=== PATIENT | female | born 1960 | race African-American/Black ===

== ENCOUNTER 2021-08-06 10:51 | Inpatient (IN) | payer OTHER ==
[~2021-08-06] VITALS: Ht 162.6 cm; Wt 137.9 kg
[~2021-08-06 10:51] MED LIST: ACETAMINOPHEN325 M1 PO; ADIPEX-P37.5 MG PO; AFEDITAB CR60 M1 PO; ALPRAZOLAM 0.50.5 M1 PO; AMBIEN 10 MG TA10 MG PO; AMBIEN 5 MG TABL5 M1 PO; ASACOL400 MG PO; ASPIRIN EC81 M1 PO; B12INJ; B12INJ INJECTION; CALCIUM CARBO1250 MG PO; CIPRO250 M1 PO; CIPRO500 MG PO; CIPROFLOXACIN500 M1 PO; CYMBALTA60 MG PO; DESYREL150 MG PO; DESYREL50 MG PO; ENTOCORT EC 3 MG3 M1 PO; ESTRACE0.5 MG PO; FEXOFENADINE HC60 MG PO; FIBERCON625 M1; FLAGYL500 MG PO; FUROSEMIDE 20 M20 MG PO; FUROSEMIDE 40 M40 MG PO; IRON325 IV; IRON325 PO; LACTINEX CHEWA1 EACH PO; LASIX 20 MG TAB20 MG PO; LEXAPRO 10 MG T10 M1 PO; LEXAPRO20 MG PO; LIALDA1.2 GM PO; LISINOPRIL20 MG PO; LISINOPRIL40 MG PO; LORATIDINE 10 M10 M1 PO; MAGIC MOUTHWASH SWISH&SPIT; MULTI-VITAMIN1 EAC5 PO; NEURONTIN600 MG PO; NORCO 5-325 TA1 EACH PO; NYSTATIN 100,0015 G1 TOP; NYSTATIN15 G1; OXYBUTYNIN 5 MG5 M2 PO; PREDNISONE 20 M20 M1 PO; PREDNISONE10 MG PO; PROVERA5 MG PO; REMIFEMIN PO; TOPAMAX 25 MG T25 M1 PO; TOPAMAX 25 MG T25 MG PO; TOPAMAX100 MG PO; TYLENOL325 MG PO; VITAMIN D250000 UNIT PO; VITAMIN D31000 UNIT PO; XANAX 0.5 MG0.5 MG PO; ZOFRAN ODT4 MG PO
[2021-08-06 11:06] VITALS: BP 142/86
[2021-08-06 11:27] LABS: URINE BILIRUBIN NEGATIVE (Negative); URINE BLOOD 1+ (Negative); URINE CLARITY CLOUDY; URINE COLOR YELLOW; URINE GLUCOSE-RANDOM* NEGATIVE (Negative); URINE KETONES NEGATIVE (Negative); URINE NITRITE-REFLEX NEGATIVE (Negative); URINE PROTEIN (DIPSTICK) NEGATIVE (Negative)
[2021-08-06 11:29] LABS: URINE LEUKOCYTES-REFLEX 2+ (Negative)
[2021-08-06 12:09] LABS: CASTS None Seen /LPF (None Seen); CRYSTALS None Seen /LPF (None Seen); SQUAMOUS 4-10 Moderate /LPF (0-3); URINE RBC None Seen /HPF (NONE SEEN); URINE WBC-REFLEX >25 Many /HPF (0-5)
[2021-08-06 12:40] LABS: ABSOLUTE NEUTROPHILS 10.4 thou/uL (1.4-8.2); BASOPHILS 0.3 % (0.0-2.0); EOSINOPHILS 1.1 % (0.0-3.0); HEMATOCRIT 36.1 % (37.0-47.0); HEMOGLOBIN 11.5 gm/dL (12.0-15.0); LYMPHOCYTES 14.3 % (24.0-44.0); MCHC 31.7 g/dL (28.0-37.0); MCV 88.4 fL (80.0-100.0); MONOCYTES 9.6 % (1.0-8.0); PLATELET COUNT 302 thou/uL (150-400); POLYS 74.7 % (36.0-66.0); RBC 4.09 mil/uL (4.20-5.00); RDW 15.4 % (10.5-14.5)
[2021-08-06 12:48] LABS: CALCIUM 8.8 mg/dL (8.5-10.1); CREATININE 1.1 mg/dL (0.6-1.0); POTASSIUM 3.7 mmol/L (3.5-5.1)
[2021-08-06 13:02] LABS: TOTAL BILIRUBIN 0.4 mg/dL (0.2-1.0); TOTAL PROTEIN 7.8 g/dL (6.4-8.2)
[2021-08-06] MEDS ORDERED: VENLAFAXINE HC150 M1 PO (14:44)
[2021-08-06] MEDS ORDERED: MYRBETRIQ50 MG PO (14:45)
[2021-08-06 20:06] VITALS: BP 128/73
[2021-08-07 08:00] VITALS: BP 122/77
--- NOTE | 2021-08-07 10:32 | EKG ---
[place] [address] [address] [facility] [place] [address] ELECTROCARDIOGRAM REPORT Name: OMA HARRISON Room #: 455-P ADM IN M.R.#: [id number] Admission: 08/06/21 Attend Phys: Ora Gracia Discharge: Date of : 56 Report #: [id number] [facility] ED Test Date: 2021-08-06 Test Time: 11:40:46 Pat Name: OMA HARRISON Department: Room: [facility] Gender: F Manager Business Continuity: christoph : 1960 Requested By: Yordy Cordova Order Number: [id number] MD: Jagdish Rudolph Measurements Intervals [place] Rate: 91 P: 37 NE: 153 QRS: 31 QRSD: 95 T: 21 QT: 349 QTc: 430 Interpretive Statements Sinus rhythm Borderline T wave abnormalities Compared to ECG 02/24/2015 18:53:51 Sinus tachycardia no longer present T-wave abnormality still present Electronically Signed On 08-07-2021 10:32:25 MOP MACHINE OPERATOR by Jagdish Rudolph [email or web address] <ELECTRONICALLY SIGNED> By: Jagdish Rudolph MD 08/07/21 1032 1140 1140 Jagdish Rudolph MD /JOAQUÍN
[2021-08-07 13:36] VITALS: BP 132/71
[2021-08-07 19:30] VITALS: BP 132/74
[2021-08-08 00:12] VITALS: BP 128/74
--- NOTE | 2021-08-08 03:09 | NUR ---
PATIENT HAS BEEN A/0X4. SHE IS INDEPENDENT WITH CARES. SHE REQUESTED AMBIEN AND APRAZOLAM PRN AT HS. SHE TOOK HER MEDS WHOLE WITH WATER. PATIENT HAS RIGHT ARM IV AND FLUSHES WITH NS ORDERED ON NOV. PATIENT DENIES PAIN. CONTINUE TO MONITOR.
[2021-08-08 04:44] VITALS: BP 121/83
[2021-08-08 05:22] LABS: HEMATOCRIT 35.8 % (37.0-47.0); HEMOGLOBIN 11.5 gm/dL (12.0-15.0); MCH 28.4 pg (26.0-34.0); MCHC 32.1 g/dL (28.0-37.0); MCV 88.6 fL (80.0-100.0); RBC 4.04 mil/uL (4.20-5.00); RDW 15.3 % (10.5-14.5); WBC 6.6 thou/uL (4.0-11.0)
[2021-08-08 05:55] LABS: ALBUMIN 2.8 g/dL (3.4-5.0); PHOSPHORUS 3.8 mg/dL (2.5-4.9); POTASSIUM 3.9 mmol/L (3.5-5.1)
[2021-08-08 07:39] VITALS: BP 125/78
[2021-08-08 12:25] VITALS: BP 114/75
--- NOTE | 2021-08-08 13:21 | 2DMMODE ---
[facility] [address] [place] [place] [address] 2 D/M-MODE ECHOCARDIOGRAM Name: OMA HARRISON Room #: 455-P ADM IN M.R.#: [id number] Admission: 08/06/21 Attend Phys: Ora Gracia Discharge: Date of : 56 Report #: [id number] THIS REPORT FOR: cc: Luis Enrique Barrow MD, Andrea A. MD Park, Jin S. MD ~ APPROVED REPORT Study performed: 08/08/2021 12:31:53 EXAM: Comprehensive 2D, Doppler, and color-flow Echocardiogram Patient Location: Bedside Room #: [facility] Status: routine BSA: 2.34 HR: 64 bpm BP: 121/83 mmHg Rhythm: NSR Other Information Study Quality: Adequate Indications Edema Back pain 2D Dimensions IVSd: 10.75 (7-11mm) LVDd: 41.85 mm PWd: 11.10 (7-11mm) Ascending Ao: 32.99 (22-36mm) LVDs: 27.35 (25-40mm) Aortic Root: 31.62 mm Volumes Left Atrial Volume (Systole) Single Plane 4CH: 31.03 mL Single Plane 2CH: 51.39 mL Biplane LA Volume: 44.00 mL LA ESV Index: 19.00 mL/m2 Aortic Valve AoV Peak Casper.: 1.54 m/s AO Peak Gr.: 9.63 mmHg LVOT Max P.54 mmHg LVOT Max V: 1.18 m/s Mitral Valve [facility] [address] [address] 2 D/M-MODE ECHOCARDIOGRAM Name: HUNTEROMA YONATAN Room #: 455-P [facility] IN M.R.#: [id number] Admission: 08/06/21 Attend Phys: Ora Lucero Discharge: Date of : 56 Report #: [id number] E/A Ratio: 0.9 MV Decel. Time: 181.01 ms MV E Max Casper.: 0.75 m/s MV A Casper.: 0.82 m/s MV PHT: 52.49 ms IVRT: 96.89 ms Pulmonary Valve PV Peak Casper.: 0.96 m/s PV Peak Gr.: 3.89 mmHg Pulmonary Vein P Vein S: 0.45 m/s P Vein A: 0.23 m/s P Vein D: 0.35 m/s P Vein A Dur.: 120.0 msec P Vein S/D Ratio: 1.29 Tricuspid Valve TR Peak Casper.: 2.60 m/s RAP Estimate: 7.00 mmHg TR Peak Gr.: 26.98 mmHg RVSP: 34.00 mmHg Left Ventricle The left ventricle is normal size. There is normal LV segmental wall motion. Borderline concentric left ventricular hypertrophy. Left ventricular systolic function is normal. The left ventricular ejection fraction is within the normal range. LVEF is 60-65%. Transmitral Doppler flow pattern suggests impaired LV relaxation. Right Ventricle The right ventricle is normal size. The right ventricular systolic function is normal. Atria The left atrium size is normal. The right atrium size is normal. Aortic Valve Aortic valve is trileaflet. No aortic regurgitation is present. There is no aortic valvular stenosis. Mitral Valve The mitral valve is normal in structure. Mild mitral regurgitation. No evidence of mitral valve stenosis. Tricuspid Valve The tricuspid valve is normal in structure. Mild tricuspid regurgitation. PAP 33 mmHg [facility] [address] [place] [address] 2 D/M-MODE ECHOCARDIOGRAM Name: OMA HARRISON Room #: 455-P [facility] IN M.R.#: [id number] Admission: 08/06/21 Attend Phys: Ora Lucero Discharge: Date of : 56 Report #: [id number] Pulmonic Valve The pulmonary valve is normal in structure. There is no pulmonic valvular regurgitation. Great Vessels The aortic root is normal in size. IVC is normal in size and collapses >50% with inspiration. Pericardium There is no pericardial effusion. There is no pleural effusion. <Conclusion> The left ventricle is normal size. Left ventricular systolic function is normal. Transmitral Doppler flow pattern suggests impaired LV relaxation. The right ventricle is normal size. The left atrium size is normal. Aortic valve is trileaflet. Mild mitral regurgitation. Mild tricuspid regurgitation. <ELECTRONICALLY SIGNED> By: Jagdish Rudolph MD 08/08/211320 20 20 Jagdish Rudolph MD /INF
--- NOTE | 2021-08-08 16:03 | NUR ---
PT ADMITTED RELATED TO PNEUMONIA, UTI. CM REVIEWED CHART AND SPOKE WITH CARE TEAM. CM MET WITH PT AT BEDSIDE THIS DAY. PT APPEARED TO BE A&O X4. CM ROLE INTRODUCED. PT INDICATED SHE LIVES IN AN APARTMENT ALONE. PT INDICATED NO STEPS. 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 PT INDICATED NO HH OR OP THERAPY HX. PT INDICATED SHE PLANS TO RETURN HOME ONCE MEDICALLY STABLE. CM FOLLOWING REGARDING DC PLANNING.
[2021-08-08 16:35] VITALS: BP 124/77
[2021-08-08 17:06] LABS: GLOBULIN TOTAL 3.6 g/dL (2.2-3.9); M-SPIKE Not Observed g/dL (Not Observed)
--- NOTE | 2021-08-08 19:19 | NUR ---
Patient AOX4 for me today, up by herself. On room air. All questions and concerns were addressed
[2021-08-08 21:33] VITALS: BP 131/69
[2021-08-09 00:30] VITALS: BP 106/66
[2021-08-09 02:06] LABS: GLYCOHEMOGLOBIN (HGB A1C) 5.7 % (4.8-5.6)
--- NOTE | 2021-08-09 03:36 | NUR ---
ASSUMED PT CARE THIS PM. PT IS ALERT AND ORIENTED X4. PT DID NOT C/O SOB OR PAIN. PT DID NOT VERBALIZE ANY CONCERNS. MEDS WERE GIVEN PER EMAR ORDERS. PT IS ON RA. FALL PRECAUTIONS IN PLACE. WILL CONTINUE TO MONITOR .
[2021-08-09 07:42] VITALS: BP 135/78
[2021-08-09 12:15] VITALS: BP 130/73
[2021-08-09] MEDS ORDERED: CEFUROXIME500 MG PO (14:12)
[2021-08-09] MEDS ORDERED: KLOR-CON M2020 MEQ PO (14:12)
[2021-08-09] MEDS ORDERED: DELZICOL400 M1 PO (14:12)
[2021-08-09] MEDS ORDERED: LASIX 40 MG TAB40 M1 PO (14:12)
[2021-08-09] MEDS ORDERED: DIFLUCAN100 MG PO (14:34)
[2021-08-09] MEDS ORDERED: ULTRAM50 MG PO (14:36)
--- NOTE | 2021-08-09 14:51 | NUR ---
Pt A & O x4. Pt Vs stable. Pt NSR on the tele. Pt is independent with cares and is up ad chalino. Pt received discharge orders to home. discharge instructions reviewed with pt and pt verbalized understanding and signed instructions. Pt awaiting ride home.
--- NOTE | 2021-08-09 15:40 | NUR ---
Pt ride arrived. pt wheeled to enterence in wheelchair by staff with personal belongings and left hospital without incident in private vehicle
== END 2021-08-09 16:36 | disposition home or self-care (01) | DRG 193 ==
LOC: ER 10:51 → EROBS 13:51 → 4W 13:51
PROVIDERS: Emergency Medicine; ADMIT Hospitalist; ATTEND Hospitalist
DX: J18.9 Pneumonia, unspecified organism (principal); I50.33 Acute on chronic diastolic (congestive) heart failure; R65.11 Systemic inflammatory response syndrome (SIRS) of non-infectious origin with acute organ dysfunction; N39.0 Urinary tract infection, site not specified; K50.90 Crohn's disease, unspecified, without complications; Z68.43 Body mass index [BMI] 50.0-59.9, adult; I11.0 Hypertensive heart disease with heart failure; K43.9 Ventral hernia without obstruction or gangrene; K80.20 Calculus of gallbladder without cholecystitis without obstruction; N28.1 Cyst of kidney, acquired; R91.1 Solitary pulmonary nodule; R79.89 Other specified abnormal findings of blood chemistry; B37.9 Candidiasis, unspecified; E66.01 Morbid (severe) obesity due to excess calories; K82.8 Other specified diseases of gallbladder; G47.00 Insomnia, unspecified; Z20.822 Contact with and (suspected) exposure to COVID-19; Z23 Encounter for immunization; Z90.49 Acquired absence of other specified parts of digestive tract; Z98.891 History of uterine scar from previous surgery; Z98.84 Bariatric surgery status; Z79.899 Other long term (current) drug therapy; Z88.8 Allergy status to other drugs, medicaments and biological substances; Z82.5 Family history of asthma and other chronic lower respiratory diseases; Z82.49 Family history of ischemic heart disease and other diseases of the circulatory system
CPT/HCPCS: 10040; 10045

== ENCOUNTER 2021-10-12 04:50 | Inpatient (IN) | payer OTHER ==
[~2021-10-12] VITALS: Ht 162.6 cm; Wt 134.7 kg
--- NOTE | ~2021-10-12 | EMS ---
[address] [address] EMS Patient Care Report Name: OMA HARRISON Room #: PRE M.R.#: [id number] Admission: Attend Phys: Discharge: Date of : 56 Report #: [id number] THIS REPORT FOR: //name// Report Transmitted: 10/12/2021 04:21 EMS Care Summary [place], [place]/[facility] Incident [id number] @ 10/12/2021 04:15 Incident Location [address] [place], [place] [id number] Patient OMA ERVIN Female, 61 Years 1960 Patient Address [address] [place], [place] [id number] Patient History Anemia,Hernia (Abdominal),Crohn's Disease, Patient Allergies Compazine, Patient Medications Tylenol, Duloxetine, Furosemide, Vitamin B12, Xanax, Topiramate, Alprazolam, Myrbetriq, Chief Complaint vomitting Disposition Transported No Lights/[place] Reason Abdominal Pain/Problems [place] [facility] [place] Upon arrival to scene PT was standing in the living room complaining of [address] [address] EMS Patient Care Report Name: OMA HARRISON Room #: [facility] Shanna.#: [id number] Admission: Attend Phys: Discharge: Date of : 56 Report #: [id number] vomiting's and left lower and upper abdominal pain. PT was alert and oriented times 4 and had a GCS of 15. PT stated she has crohn's disease and a hernia currently. PT's symptoms started around 1 am. PT stated her vomit was clear in color. PT was able to walk to our cot without any assistance. Once in the ambulance we monitored the PT's vital signs and I gave her a tablet of oral Zofran. PCR was given to [facility] prior to our arrival. Upon arrival PT had a GCS of 15. Initial Vitals @04:32P: 57,R: 20,BP: 132/91,Pain: 10/10,GCS: 15,SpO2: 100,Revised Trauma: 12, Assessments @04:26MENTAL:Time Oriented,Event Oriented,Person Oriented,Place Oriented,SKIN:HEENT:Head/Face: No Abnormalities,Neck/Airway: No Abnormalities,LUNG SOUNDS:Left Upper: Tenderness,Left Lower: Tenderness,General: No Abnormalities,ABDOMEN:Left Upper: Tenderness,Left Lower: Tenderness,General: No Abnormalities,PELVIS//GI:No Abnormalities,EXTREMITIES:Left Arm: No Abnormalities,Right Arm: No Abnormalities,Left Leg: No Abnormalities,Right Leg: No Abnormalities,PULSE:Radial: 2+ Normal,NEURO:No Abnormalities, Impression Abdominal Pain Procedures @04:26 ALS Assessment Response: UnchangedSucceeded @04:32 Zofran - 4 Milligrams (mg) - Intravenous (IV) Response: Improved Timeline 04:13,Call Received 04:13,Dispatch Notified 04:15,Dispatched 04:17,En Route 04:25,On Scene 04:25,At Patient 04:26,ALS Assessment,Response: UnchangedSucceeded, 04:32,Zofran - 4 Milligrams (mg) - Intravenous (IV),Response: Improved 04:32,BP: 132/91 M,PULSE: 57,RR: 20 R,SPO2: 100 Ox,ETCO2: ,BG: ,PAIN: 10,GCS: 15, 04:36,Depart Scene 04:46,At Destination 05:00,Call Closed Disclaimer v1.1 Copyright [address] [employer] [facility] [address] [place] [address] EMS Patient Care Report Name: OMA HARRISON Room #: PRE M.R.#: [id number] Admission: Attend Phys: Discharge: Date of : 56 Report #: [id number] This EMS Care Summary contains data elements from the applicable legal record (which may be displayed differently). It is designed to provide pertinent information for the following purposes: continuity of care, clinical quality, and state data reporting. The complete legal record is available to ED staff and administrators of the receiving hospital in [employer] ID's Patient Tracker. All data is provided "as is."
[~2021-10-12 04:50] MED LIST changes: +CEFUROXIME500 MG PO; +DELZICOL400 M1 PO; +DIFLUCAN100 MG PO; +KLOR-CON M2020 MEQ PO; +LASIX 40 MG TAB40 M1 PO; +MYRBETRIQ50 MG PO; +ULTRAM50 MG PO; +VENLAFAXINE HC150 M1 PO
[2021-10-12 04:51] VITALS: BP 154/89
[2021-10-12 05:10] LABS: ABSOLUTE NEUTROPHILS 12.6 thou/uL (1.4-8.2); BASOPHILS 0.1 % (0.0-2.0); HEMATOCRIT 41.6 % (37.0-47.0); HEMOGLOBIN 13.4 gm/dL (12.0-15.0); LYMPHOCYTES 10.8 % (24.0-44.0); MCHC 32.2 g/dL (28.0-37.0); MCV 87.1 fL (80.0-100.0); MONOCYTES 2.4 % (1.0-8.0); PLATELET COUNT 327 thou/uL (150-400); POLYS 86.7 % (36.0-66.0); RBC 4.78 mil/uL (4.20-5.00); RDW 16.6 % (10.5-14.5); WBC 14.5 thou/uL (4.0-11.0)
[2021-10-12 05:29] LABS: CALCIUM 9.7 mg/dL (8.5-10.1); CREATININE 1.1 mg/dL (0.6-1.0); POTASSIUM 4.8 mmol/L (3.5-5.1)
[2021-10-12 05:33] LABS: TOTAL BILIRUBIN 0.2 mg/dL (0.2-1.0); TOTAL PROTEIN 9.2 g/dL (6.4-8.2)
[2021-10-12 07:13] LABS: URINE BILIRUBIN NEGATIVE (Negative); URINE BLOOD 1+ (Negative); URINE COLOR YELLOW; URINE GLUCOSE-RANDOM* NEGATIVE (Negative); URINE KETONES NEGATIVE (Negative); URINE LEUKOCYTES-REFLEX NEGATIVE (Negative); URINE NITRITE-REFLEX NEGATIVE (Negative); URINE PROTEIN (DIPSTICK) 1+ (Negative); URINE SPECIFIC GRAVITY 1.025 (1.005-1.035); URINE UROBILINOGEN 0.2 E.U./dl (0.2-1.0)
[2021-10-12 07:17] LABS: URINE CLARITY SLIGHTLY CLOUDY
[2021-10-12] MEDS ORDERED: STELARA90 MG/1 ML SUBQ (07:37)
[2021-10-12] MEDS ORDERED: DULOXETINE HCL60 MG PO (07:38)
[2021-10-12 07:45] VITALS: BP 125/72
[2021-10-12 08:07] VITALS: BP 143/80
[2021-10-12 09:30] LABS: SQUAMOUS >10 Many /LPF (0-3)
[2021-10-12 09:31] LABS: CASTS None Seen /LPF (None Seen); CRYSTALS None Seen /LPF (None Seen); URINE WBC-REFLEX 0-5 Rare /HPF (0-5)
[2021-10-12 09:32] LABS: URINE RBC 1-2 Rare /HPF (NONE SEEN)
[2021-10-12 09:33] LABS: BACTERIA-REFLEX 1-9 Few /HPF (None Seen)
--- NOTE | 2021-10-12 15:04 | NUR ---
PT ADMITTED RELATED TO SBO. CM REVIEWED CHART AND SPOKE WITH CARE TEAM. CM MET WITH PT AT BEDSIDE THIS DAY. PT APPEARED TO BE A&O X4. CM ROLE INTRODUCED. PT INDICATED SHE LIVES IN AN APARTMENT ALONE WITH NO STEPS. 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 PT INDICATED NO DME CITY DISPATCH SUPERVISOR. PT INDICATED SHE LOST HER OLDEST BROTHER THIS PAST AUGUST AND SHE IS FEELING HIS LOSS STRONGLY AT THIS TIME. SHE INDICATED THAT SHE PLAN TO RETURN HOME ONCE MEDICALLY STABLE. PT'S PCP IS DR. LINDA HARPER. PT IS TO HAVE UPPER GI AND SMALL BOWEL FOLLOW THROUGH TOMORROW. CM FOLLOWING REGARDING DC PLANNING.
[2021-10-12 16:06] VITALS: BP 121/55
--- NOTE | 2021-10-12 18:36 | NUR ---
ASSUMED CARE OF PT AT 1000. PT ALERT AND ORIENTED. AMBULATED TO BATHROOM TO TAKE A SHOWER. CONTINENT. VSS. AFEBRILE AND ON ROOM AIR. CURRENTLY NPO. MORPHINE ADMINISTERED FOR ABDOMINAL PAIN. NO VOMITING ON THIS SHIFT. PERIPHERAL IV LEFT AC AND HAS NORMAL SALINE INFUSING. PT WENT DOWN FOR UPPER GI FOLLOW THROUGH. WILL CONTINUE TO MONITOR PT.
[2021-10-12 20:00] VITALS: BP 116/69
[2021-10-13 02:06] LABS: HEMATOCRIT 37.5 % (37.0-47.0); HEMOGLOBIN 11.8 gm/dL (12.0-15.0); MCH 27.5 pg (26.0-34.0); MCHC 31.4 g/dL (28.0-37.0); MCV 87.7 fL (80.0-100.0); RBC 4.27 mil/uL (4.20-5.00); WBC 15.2 thou/uL (4.0-11.0)
[2021-10-13 02:12] LABS: ALBUMIN 3.3 g/dL (3.4-5.0); CALCIUM 8.9 mg/dL (8.5-10.1); CREATININE 0.8 mg/dL (0.6-1.0); POTASSIUM 4.3 mmol/L (3.5-5.1); TOTAL BILIRUBIN 0.3 mg/dL (0.2-1.0); TOTAL PROTEIN 7.6 g/dL (6.4-8.2)
--- NOTE | 2021-10-13 02:55 | NUR ---
PT REMAIN ALERT AND ORIENT TIMES FOUR. UP AD BENEDICTO TO BR WITH OCCASSIONAL ASSISTANCE WITH IV POLE. PT STATE THAT SHE HADN'T SLEPT IN 24 HOURS. DID GET APPROXIMATELY 5 HRS OF SLEEP THEN COMMENCED TO GET ON THE CELL PHONE TALKING TO FAMILY MEMBERS DURING THE EARLY HOURS OF THE MORNING. VSS, AFEBRILE. C/O GENERALIZED ABD PAIN. MS GIVEN WITH GOOD RELIEF. PT REFUSED FINGER STICKS AND STATE THAT SHE WAS NOT A DIABETIC AND SHE WAS NOT GOING TO TAKE INSULIN. PT QUESTIONED THE REASON DR. DHILLON ORDERED BS/INSULIN FOR HER. POSSIBLE CT OF ABDOMEN THIS AM. PT IS REQUESTING TO TAKE A SHOWER IN THE AM. SLOW PROGRESS TOWARDS DC GOALS, WILL CONTINUE TO MONITOR.
[2021-10-13 05:07] LABS: GLYCOHEMOGLOBIN (HGB A1C) 5.5 % (4.8-5.6)
--- NOTE | 2021-10-13 12:58 | NUR ---
Pt ADMITTED FOR SBO AND IS A&OX4. Pt HAS BEEN UP AD BENEDICTO PRIOR TO PT EVAL AND TREAT. SHE STATES LIVING IN AN APARTMENT ALONE W/O STAIRS AND NO AD. PARTICIPATES IN EXERCISE PROGRAM AT HOME, STAYS ACTIVE WITH WALKING AND EXERCISES. STATES HAVING A CORTSIONE SHOT IN KNEE ON SUNDAY FOR KNEE ARTHRITIS. [facility]. Pt IS BEING D/C FROM PT.
--- NOTE | 2021-10-13 13:07 | NUR ---
I have reviewed the documentation by TOBI GROSS from 10/13/21 to 10/13/21 and I concur with it. KLAUS BAUER, PT, DPT
[2021-10-13 16:29] VITALS: BP 132/73
[2021-10-13 19:47] VITALS: BP 152/61
[2021-10-14 07:32] VITALS: BP 109/65
--- NOTE | 2021-10-14 08:35 | NUR ---
ASSUMED PT CARE THIS AM. PT IS ALERT & ORIENTED X4. PT HAS IV SITE ON [place] RUNNING NS @75ML/HR. NO C/O OF PAIN, NAUSEA AND VOMITING THIS AM. PT REFUSED ACCHUCHECK AND INSULIN. GIVEN SCHEDULED AND PRN MEDICATIONS WITHOUT DIFFICULTIES THIS AM. PT ON THE BED WATCHING TV, BED ON THE LOWEST POSITION, SIDE RAILS UP, CALL LIGHT WITHIN REACH. WILL FOLLOW POC.
[2021-10-14 15:10] VITALS: BP 124/62
[2021-10-14 19:49] VITALS: BP 121/64
--- NOTE | 2021-10-15 03:06 | NUR ---
PT RESTING IN NO ACUTE DISTRESS.A/OX4.VSS.C/O ABDOMINAL PAIN THAT WAS CONTROLLED WITH PAIN MEDS.DENIES NAUSEA.TOLERATING REGULAR FOOD.POC IS TO DISCHARGE TO HOME TODAY.ASSESSMENTS COMPLETED DOCUMENTED.
[2021-10-15 07:25] VITALS: BP 114/68
[2021-10-15 10:23] VITALS: BP 114/68
--- NOTE | 2021-10-15 13:50 | NUR ---
PT ALERT AND ORIENTED THIS MORNING. REMAINS CONCENED THAT SHE FILLS UP SO QUICKLY WHEN SHE EATS. REINFORCED EDUCATION REGARDING SMALL FREQUENT MEALS SINCE HER STOMACH IS SMALL. MD ALSO REINFORCED THIS AND PT STATES UNDERSTANDING. PLAN TO DC TODAY. RIDE HOME CAN COME AT 530 P OR 6P. IV REMOVED. PT AWARE AND IN AGREEMENT WITH DC PLAN. WILL CONT TO MONITOR UNTIL PT DC'S.
== END 2021-10-15 18:39 | disposition home or self-care (01) | DRG 388 ==
LOC: ER 04:50 → EROBS 07:34 → 4W 07:34
PROVIDERS: Emergency Medicine; Nurse Practitioner; ADMIT Pediatrics; ATTEND Pediatrics
DX: K56.600 Partial intestinal obstruction, unspecified as to cause (principal); N17.0 Acute kidney failure with tubular necrosis; K50.90 Crohn's disease, unspecified, without complications; Z68.43 Body mass index [BMI] 50.0-59.9, adult; I50.32 Chronic diastolic (congestive) heart failure; N83.202 Unspecified ovarian cyst, left side; Z88.8 Allergy status to other drugs, medicaments and biological substances; Z91.013 Allergy to seafood; F41.9 Anxiety disorder, unspecified; F32.A Depression, unspecified; Z20.822 Contact with and (suspected) exposure to COVID-19; E66.01 Morbid (severe) obesity due to excess calories; M19.90 Unspecified osteoarthritis, unspecified site; Z79.899 Other long term (current) drug therapy
CPT/HCPCS: 10040

== ENCOUNTER 2021-10-21 07:57 | Inpatient (IN) | payer OTHER ==
[~2021-10-21] VITALS: Ht 162.6 cm; Wt 138.3 kg
[~2021-10-21 07:57] MED LIST changes: +DULOXETINE HCL60 MG PO; +STELARA90 MG/1 ML SUBQ
[2021-10-21 07:58] VITALS: BP 93/60
[2021-10-21 08:51] LABS: HEMATOCRIT 38.2 % (37.0-47.0); HEMOGLOBIN 12.3 gm/dL (12.0-15.0); MCH 28.1 pg (26.0-34.0); MCHC 32.2 g/dL (28.0-37.0); MCV 87.1 fL (80.0-100.0); PLATELET COUNT 297 thou/uL (150-400); RBC 4.39 mil/uL (4.20-5.00); RDW 17.4 % (10.5-14.5); WBC 29.1 thou/uL (4.0-11.0)
[2021-10-21 09:01] LABS: CALCIUM 9.2 mg/dL (8.5-10.1); CREATININE 1.1 mg/dL (0.6-1.0); POTASSIUM 4.3 mmol/L (3.5-5.1)
[2021-10-21 09:06] LABS: MAGNESIUM 1.9 mg/dL (1.8-2.4)
[2021-10-21 09:15] LABS: ALBUMIN 3.3 g/dL (3.4-5.0); TOTAL BILIRUBIN 0.5 mg/dL (0.2-1.0); TOTAL PROTEIN 7.8 g/dL (6.4-8.2)
[2021-10-21 09:19] LABS: URINE BILIRUBIN NEGATIVE (Negative); URINE BLOOD TRACE (Negative); URINE CLARITY CLEAR; URINE COLOR YELLOW; URINE GLUCOSE-RANDOM* NEGATIVE (Negative); URINE KETONES NEGATIVE (Negative); URINE LEUKOCYTES-REFLEX NEGATIVE (Negative); URINE NITRITE-REFLEX NEGATIVE (Negative); URINE PROTEIN (DIPSTICK) NEGATIVE (Negative); URINE UROBILINOGEN 0.2 E.U./dl (0.2-1.0)
[2021-10-21 09:30] LABS: ABSOLUTE NEUTROPHILS 26.5 thou/uL (1.4-8.2); ANISOCYTOSIS 1+; PLATELET ESTIMATE NORMAL
--- NOTE | 2021-10-21 15:33 | EKG ---
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: neno : 1960 Requested By: Britney Onofre Order Number: [id number] MD: Shahab Nielsen Measurements Intervals [place] Rate: 110 P: 39 MI: 150 QRS: -3 QRSD: 86 T: QT: 363 QTc: 492 Interpretive Statements Sinus tachycardia Nonspecific T abnormalities, diffuse leads Compared to ECG 08/06/2021 11:40:46 Sinus rhythm no longer present T-wave abnormality still present Electronically Signed On 10-21-2021 15:33:27 CUSTODIAL MANAGER by Shahab Nielsen [email or web address] <ELECTRONICALLY SIGNED> By: Shahab Nielsen MD, [facility] 10/21/21 1533 2 2 Shahab Nielsen MD, FACC /EPI
[2021-10-21 18:05] VITALS: BP 120/59
--- NOTE | 2021-10-21 18:18 | NUR ---
Patient just arrived to unit & settled in. Oriented to room call button. Fall prevention education provided. Endorsed to PM RN.
--- NOTE | 2021-10-22 05:06 | NUR ---
RECEIVED CARE OF THIS PATIENT AT 1900. PATIENT ALERT AND ORIENTED X4. UP TO BSC. IV PATENT IN RAC WITH FLUIDS INFUSING. NPO SINCE [place] FOR SURGERY THIS AM. C/O PAIN, MED GIVEN. SLEPT OFF AND ON DURING NIGHT.
[2021-10-22 08:14] VITALS: BP 143/66
--- NOTE | 2021-10-22 10:04 | NUR ---
Assumed care of pt at 0700. Pt a&ox4. IVF infusing. RA. Scheduled for surgery today. Family at bedside. Call light within reach. Will continue to monitor.
[2021-10-22 12:27] VITALS: BP 99/47
[2021-10-22 15:14] VITALS: BP 113/67
[2021-10-22 21:30] LABS: HEMATOCRIT 35.2 % (37.0-47.0); HEMOGLOBIN 11.2 gm/dL (12.0-15.0); MCH 27.8 pg (26.0-34.0); MCHC 31.8 g/dL (28.0-37.0); MCV 87.3 fL (80.0-100.0); PLATELET COUNT 255 thou/uL (150-400); RBC 4.03 mil/uL (4.20-5.00); RDW 17.2 % (10.5-14.5); WBC 26.5 thou/uL (4.0-11.0)
[2021-10-22 21:38] VITALS: BP 98/61
[2021-10-22 21:41] LABS: POTASSIUM 4.3 mmol/L (3.5-5.1)
[2021-10-22 22:16] LABS: ABSOLUTE NEUTROPHILS 24.6 thou/uL (1.4-8.2)
[2021-10-22 22:18] LABS: ANISOCYTOSIS 1+; TOXIC GRANULATION 1+
[2021-10-23 05:27] LABS: HEMATOCRIT 34.2 % (37.0-47.0); HEMOGLOBIN 10.7 gm/dL (12.0-15.0); MCH 27.9 pg (26.0-34.0); MCHC 31.4 g/dL (28.0-37.0); MCV 88.8 fL (80.0-100.0); RBC 3.84 mil/uL (4.20-5.00); RDW 17.1 % (10.5-14.5); WBC 26.5 thou/uL (4.0-11.0)
--- NOTE | 2021-10-23 05:27 | NUR ---
PT AMBULATING TO BATHROOM INDEPENDENTLY AND IS TOLERATING WELL. LORTAB PROVIDING PAIN RELIEF. RESTING COMFORTABLY. NO NEEDS VOICED. CALL LIGHT WITHIN REACH. FREQUENT OBSERVATION.
[2021-10-23 05:57] LABS: CALCIUM 8.7 mg/dL (8.5-10.1); CREATININE 1.1 mg/dL (0.6-1.0); POTASSIUM 4.1 mmol/L (3.5-5.1)
[2021-10-23 07:50] VITALS: BP 131/56
--- NOTE | 2021-10-23 16:07 | NUR ---
PT ASSESSED AT START OF SHIFT. UP TO THE CHAIR FOR SEVERAL HOURS THIS AM. TOOK SHOWER. PAIN MED FOR C/O ABD DISCOMFORT. NO C/O NAUSEA OR VOMITING. LAST BM SUNDAY. LAP CHOLEY NOT PERFORMED SURGEON STATED TOO MUCH SCAR TISSUE AND WILL NEED TO FOLLOW UP W/ [facility] TO HAVE REMOVED. DR. MANCIA UPDATED W/ INFO. PT RESTING IN BED AT PRESENT.
[2021-10-23 17:04] VITALS: BP 125/87
[2021-10-23 19:35] VITALS: BP 122/60
--- NOTE | 2021-10-24 05:47 | NUR ---
PT AMBULATING TO BATHROOM INDEPENDENTLY AND IS TOLERATING FAIR. LORTAB PROVIDING PAIN RELIEF. RESTING COMFORTABLY. NO NEEDS VOICED. CALL LIGHT WITHIN REACH. FREQUENT OBSERVATION.
[2021-10-24 06:09] LABS: CALCIUM 8.5 mg/dL (8.5-10.1)
[2021-10-24 08:25] VITALS: BP 127/72
--- NOTE | 2021-10-24 09:50 | NUR ---
"PAT" A/O X 4, ROOM AIR, AD BENEDICTO, CONT B/B, LEFT AC IV, GENERAL EDEMA 2+, HAS BRIEF ON FOR STRESS INCONT, HAS 4 ABD LAB SITES WITH DERMABOND, HAVING SOME ANXIETY AND XANEX GIVEN, REFUSED MIRALAX BM THIS MORNING
--- NOTE | 2021-10-24 10:36 | NUR ---
Assess due to pt with class III extreme obesity, BMI 52. Admit with cholecystitis. Hx crohns, gastric bypass 2008. S/P exp lap, was unable to have cholecystectomy due to significant scarring and risk so chart notes will need procedure at tertiary location. Diet has advanced, tolerating fair. On lactulose and miralax for constipation. Low fat diet discussed and encouraged while pt awaiting procedure. Low nutrition risk
[2021-10-24 14:46] LABS: HEMOGLOBIN 10.3 gm/dL (12.0-15.0); MCH 27.9 pg (26.0-34.0); MCHC 32.1 g/dL (28.0-37.0); MCV 87.1 fL (80.0-100.0); PLATELET COUNT 226 thou/uL (150-400); RBC 3.67 mil/uL (4.20-5.00); RDW 17.2 % (10.5-14.5); WBC 20.3 thou/uL (4.0-11.0)
[2021-10-24 15:26] LABS: ABSOLUTE NEUTROPHILS 16.2 thou/uL (1.4-8.2)
[2021-10-24 15:27] LABS: ANISOCYTOSIS 1+
[2021-10-24 16:30] VITALS: BP 97/63
[2021-10-24 20:04] VITALS: BP 90/52
--- NOTE | 2021-10-25 05:11 | NUR ---
RECEIVED CARE OF THIS PATIENT AT 1900. PATIENT ALERT AND ORIENTED X4. UP IN ROOM. HAS 4 SM LAP SITES ON ABD. DRESSING ON ABD INTACT. DENIES PAIN. SLEPT MOST OF NIGHT.
[2021-10-25 05:53] LABS: HEMATOCRIT 33.6 % (37.0-47.0); HEMOGLOBIN 10.5 gm/dL (12.0-15.0); MCH 28.3 pg (26.0-34.0); MCHC 31.4 g/dL (28.0-37.0); MCV 90.4 fL (80.0-100.0); RBC 3.72 mil/uL (4.20-5.00); RDW 17.2 % (10.5-14.5); WBC 11.9 thou/uL (4.0-11.0)
[2021-10-25 06:15] LABS: CALCIUM 8.5 mg/dL (8.5-10.1); CREATININE 1.2 mg/dL (0.6-1.0)
[2021-10-25 08:00] VITALS: BP 135/87
--- NOTE | 2021-10-25 08:31 | O ---
[facility] [address] [place] [place] [address] OPERATIVE REPORT Name: OMA HARRISON Room #: 438-P ADM IN M.R.#: [id number] Admission: 10/21/21 Attend Phys: Felix Mukherjee MD Discharge: Date of : 56 Report #: [id number] THIS REPORT FOR: cc: LINDA LUTHER Physician not on staff Meet Penny MD ~ DATE OF SERVICE: 10/22/2021 PREOPERATIVE DIAGNOSIS: Symptomatic cholelithiasis. POSTOPERATIVE DIAGNOSIS: Symptomatic cholelithiasis. OPERATION: Diagnostic laparoscopy. SURGEON: Meet Penny MD ANESTHESIA: General. ESTIMATED BLOOD LOSS: Minimal. SPECIMENS: None. DESCRIPTION OF PROCEDURE: After informed consent was obtained, the patient was brought to the operating room and placed supine. SCDs were placed and working, preoperative antibiotics were administered and general anesthesia was induced. The abdomen was prepped and draped in the usual sterile fashion. A 5 mm incision was made in the left upper quadrant. A 5 mm trocar was placed under direct vision. Pneumoperitoneum was established. Two right upper quadrant 5 mm trocars were then placed under direct vision. I tried to visualize the gallbladder. However, there was too much scarring in the abdomen to safely visualize any space where I could work to remove the gallbladder. I did visualize the gallbladder. It was not edematous and it did not have any signs of cholecystitis. Given that there was some scarring and I was not able to get trocars in or dissect around the gallbladder, I felt it was in the patient's best interest to not pursue the cholecystectomy at this time. Therefore, the ports were removed under direct vision. The skin was closed with 4-0 Monocryl. Sterile dressings were applied. COMPLICATIONS: None. DISPOSITION: The patient was taken to recovery in a satisfactory condition. [address] [address] OPERATIVE REPORT Name: JULIANO HARRISONIA YONATAN Room #: 438-P ADM IN .R.#: [id number] Admission: 10/21/21 Attend Phys: Felix Mukherjee MD Discharge: Date of : 56 Report #: [id number] She can be referred to a tertiary center where she can pursue a laparoscopic cholecystectomy if she would like. <ELECTRONICALLY SIGNED> By: Meet Penny MD 10/25/21 0831 1103 1127 Meet Penny MD /nt
--- NOTE | 2021-10-25 11:46 | NUR ---
ASSUMED CARE OF PT AT 0700. VSS. AOX4. NO RESPIRATORY DISTRESS. NO OTHER COMPLAINTS OTHER THAN INCISIONAL PAIN ON RIGHT ABDOMEN. PT PERIPHERAL IV INTACT AND FLUSHES. ANTIBIOTICS ADMINISTERED PER EMAR. AMBULATING UP AD BENEDICTO, CONTINENT. CONTINUE TO FOLLOW POC. PLAN IS TO DISCHARGE PT AFTER COURSE OF ANTIBIOTICS.
[2021-10-25 19:53] VITALS: BP 94/56
[2021-10-26 03:10] VITALS: BP 103/70
--- NOTE | 2021-10-26 05:49 | NUR ---
RECEIVED CARE OF THIS PATIENT AT 1900. PATIENT ALERT AND ORIENTED X4. UP AD BENEDICTO. HAS 4 SMALL INCISIONS ON ABD WITH DERMABOND. HAS DRESSING LLQ OF ABD WHERE AN ABSCESS WAS DRAINED. DENIES PAIN. SLEPT MOST OF NIGHT.
--- NOTE | 2021-10-26 10:43 | HC ---
[facility] [address] [place] [place] [address] CONSULTATION Name: OMA HARRISON Room #: 438-P ADM IN M.R.#: [id number] Admission: 10/21/21 Attend Phys: Felix Mukherjee MD Discharge: Date of : 56 Report #: [id number] THIS REPORT FOR: cc: LINDA LUTHER Physician not on staff Simon Vargas MD ~ DATE OF SERVICE: 10/25/2021 INFECTIOUS DISEASE CONSULTATION ATTENDING PHYSICIAN: Dr. Mukherjee. REASON FOR EVALUATION: Postoperative evaluation with possible skin and soft tissue infection. HISTORY OF PRESENT ILLNESS: Chart reviewed. The patient examined. This is a 61-year-old gentleman with a woman with history of Crohn's disease, previous history of gastric sleeve surgery, who had recent hospitalization with small-bowel obstruction. This was treated conservatively without surgery. Within the last several days, she developed severe abdominal pain, mostly left sided, upper quadrant, nausea and emesis as well, did report to have fevers up to 101.1. This prompted ER visit. Initial laboratory showed a white count elevated at 26.5 with 1+ toxic granulations. Blood cultures collected at time of admission are sterile thus far. CT of the pelvis did raise a question of possible acute cholecystitis. This prompted laparoscopic evaluation; however, this was not carried through due to extensive scarring, although would be a significant risk. Also, did note what appeared to be a subcutaneous fluid collection on the left upper quadrant as well. She reports it being drained with significant relief. She was empirically started on combination therapy with Zosyn and Levaquin. She is quite lucid at this point. Admits to some mild dyspnea. She is maintained on room air. ALLERGIES: Listed to COMPAZINE and NICKEL. CURRENT MEDICATIONS: Include Zosyn, hydrocodone, duloxetine, enoxaparin, oxybutynin, topiramate, trazodone, lactulose, famotidine, furosemide, levothyroxine, alprazolam, p.r.n. analgesics, antiemetics. PAST MEDICAL HISTORY: As described above, noted Crohn's disease, history of hypertension, arthritis, morbid obesity, previous gastric bypass. SOCIAL HISTORY: Nonsmoker, no ethanol, no illicit drug use. FAMILY HISTORY: Noncontributory. REVIEW OF SYSTEMS: Otherwise, unrevealing. [address] [address] CONSULTATION Name: OMA HARRISON Room #: 438-P [facility] IN [place].#: [id number] Admission: 10/21/21 Attend Phys: Felix Mukherjee MD Discharge: Date of : 56 Report #: [id number] PHYSICAL EXAMINATION: GENERAL: She is alert, cooperative, pleasant, mild to moderate distress. She is lucid. She is morbidly obese. VITAL SIGNS: Temperature 98.5, pulse 90, respirations 18, blood pressure 90/52. SKIN: Warm, dry, no rashes. HEENT: Extraocular muscles intact. Normocephalic. NECK: Supple and thick, otherwise unremarkable LUNGS: Diminished breath sounds throughout. HEART: Distant, regular, borderline tachycardic. I do not appreciate a murmur. ABDOMEN: Obese, firm. She has got a dressing in place in left upper quadrant, is tender, with no overt peritoneal signs. GENITOURINARY AND RECTAL: Deferred. LABORATORY DATA: Electrolytes: Sodium 143, potassium 4.0, chloride 107, bicarbonate 21, anion gap of 15, BUN and creatinine 12 and 1.2. CBC: White count 11.9, H and H 10.5 and 33.6, platelets of 196. CT abdomen and pelvis showed moderate amount of gas and mild surrounding fat stranding in left anterior abdominal wall. A small amount of gas tracking within the musculature at the site of previous laparoscopic puncture site. Blood cultures sterile thus far. ASSESSMENT AND PLAN: Postoperative skin and soft tissue infection. The patient with recent laparoscopic attempted cholecystectomy that was aborted due to extensive scarring, presumably from the Crohn's. At this point, she is not overtly toxic. I think we can cut down therapy at this point. Noted plans of transfer to tertiary care center, add incentive spirometry. She is at risk for additional complications. Increase activity as allowed. Optimize nutritional support. <ELECTRONICALLY SIGNED> By: Simon Vargas MD 10/26/21 [id number] Simon Vargas MD /nt
[2021-10-26 11:25] LABS: HEMOGLOBIN 11.5 gm/dL (12.0-15.0); MCH 27.6 pg (26.0-34.0); MCV 86.3 fL (80.0-100.0); RBC 4.18 mil/uL (4.20-5.00); RDW 16.7 % (10.5-14.5); WBC 9.4 thou/uL (4.0-11.0)
[2021-10-26 11:36] LABS: CALCIUM 9.4 mg/dL (8.5-10.1); CREATININE 1.2 mg/dL (0.6-1.0); MAGNESIUM 2.1 mg/dL (1.8-2.4); POTASSIUM 3.7 mmol/L (3.5-5.1)
--- NOTE | 2021-10-26 11:44 | NUR ---
ASSUMED CARE OF PATIENT THIS AM. PATIENT WAS LYING QUIETLY WITH EYES CLOSED NO COMPLAINTS OVER NIGHT AND THIS AM. PATIENTS ONLY CONCERN THAT HE WANTS TO GET INTO REHAB ALREADY. EXPLAINED TO HIM AGAIN THE ISSUES WE WERE HAVING AND WHAT THE GAME PLAN NEXT WAS. SPOKE WITH COUNT ROOM CLERK AND SHE WAS GOING TO READRESS THE ISSUES WITH PATIENT WELL. WILL CONTINUE TO MINITOR AND UPDATE NOTE NEEDED.
--- NOTE | 2021-10-26 12:02 | NUR ---
ASSUMED CARE OF PATIENT THIS MORNING. PATIENT UP WITH STAND BY ASSIST TO AMBULATE TO THE RESTROOM. NO COMPLAINTS AT THAT TIME, AFTER BREAKFAST PATIENT GOT SLIGHTLY NAUSEATED, THINKS THE BREAKFAST JUST DIDNT' SIT WELL HER. PATIENT UP TO SHOWER AND PENDING POSSIBLE DISCHARGE TODAY.
[2021-10-26 20:22] VITALS: BP 96/59
--- NOTE | 2021-10-27 04:41 | NUR ---
ASSIMED PT CARE THIS PM. PT IS ALERT AND ORIENTED X4. PT HAS INCISION TO THE LUQ WITH DRSG I/D. MEDS WERE GIVEN PER EMAR ORDERS. PT DID NOT VERBALIZE ANY CONCERNS.FALL PRECAUTIONS IN PLACE. WILL CONTINUE TO MONITOR.
[2021-10-27 05:10] LABS: HEMATOCRIT 33.1 % (37.0-47.0); HEMOGLOBIN 10.4 gm/dL (12.0-15.0); MCH 27.9 pg (26.0-34.0); MCHC 31.5 g/dL (28.0-37.0); MCV 88.4 fL (80.0-100.0); RBC 3.75 mil/uL (4.20-5.00); RDW 17.1 % (10.5-14.5); WBC 11.3 thou/uL (4.0-11.0)
[2021-10-27 05:31] LABS: CALCIUM 8.7 mg/dL (8.5-10.1); CREATININE 1.4 mg/dL (0.6-1.0); MAGNESIUM 2.3 mg/dL (1.8-2.4); POTASSIUM 3.6 mmol/L (3.5-5.1)
[2021-10-27 07:49] VITALS: BP 115/74
--- NOTE | 2021-10-27 17:51 | NUR ---
PATIENT LAYING IN BED AFTER EATING DINNER. NO COMPLAINTS OF PAIN TODAY. ONLY COMPLAINING OF NAUSEA THIS MORNING DURING BREAKFAST. TOLERATED WARM MOIST COMPRESS OVER DRESSING TODAY PER DR. CREWS ORDER. PATIENT HAD BOWL MOVEMENT TODAY AND IS UP ADLIB IN ROOM.
[2021-10-27 19:30] VITALS: BP 104/70
--- NOTE | 2021-10-28 01:11 | NUR ---
ASSUMED PT CARE AT 1900.PT DENIED PAIN/N/V SO FAR.PT IND WITH CARES.DRGS TO HER LLQ C/DI,WARM COMPRESS APPLIED.PT AFEBRILE SINCE SHIFT STARTED.PT ABLE TO MAKE HER NEEDS KNOWN.CALL LIGHT WITHIN REACH.
[2021-10-28 05:19] LABS: HEMATOCRIT 35.2 % (37.0-47.0); HEMOGLOBIN 11.1 gm/dL (12.0-15.0); MCH 28.6 pg (26.0-34.0); MCHC 31.5 g/dL (28.0-37.0); MCV 90.7 fL (80.0-100.0); RBC 3.88 mil/uL (4.20-5.00); WBC 8.7 thou/uL (4.0-11.0)
[2021-10-28 05:58] LABS: CALCIUM 8.9 mg/dL (8.5-10.1); CREATININE 1.1 mg/dL (0.6-1.0); MAGNESIUM 2.3 mg/dL (1.8-2.4); POTASSIUM 4.6 mmol/L (3.5-5.1)
[2021-10-28 08:56] VITALS: BP 103/56
[2021-10-28 11:16] VITALS: BP 103/56
--- NOTE | 2021-10-28 11:21 | NUR ---
met with patient plan home today. discussed home health care. Patient with no preference for home health agency. Agreeable to referral to that accepts insurance. Referral to [facility] home health care. Requested [facility] for home. Delivered by [facility].
[2021-10-28] MEDS ORDERED: AUGMENTIN875 PO (14:27)
[2021-10-28] MEDS ORDERED: MIRALAX17 GM PO (14:27)
[2021-10-28] MEDS ORDERED: SENNA-DOCUSATE1 EAC1 PO (14:30)
[2021-10-28 14:54] VITALS: BP 103/56
[2021-10-28 15:13] VITALS: BP 103/56
--- NOTE | 2021-10-28 18:10 | NUR ---
Faxed orders to [facility] they confirmed rec orders. Marty campos
== END 2021-10-28 17:52 | disposition home health service (06) | DRG 853 ==
LOC: ER 07:57 → 4S 12:05 → EROBS 12:05 → 4S 17:53
PROVIDERS: Emergency Medicine; Internal Medicine; ADMIT Hospitalist; ATTEND Hospitalist
PROC: 0FJ44ZZ Inspection of Gallbladder, Percutaneous Endoscopic Approach (ICD-10-PCS; principal; 2021-10-21)
DX: A41.9 Sepsis, unspecified organism (principal); J18.9 Pneumonia, unspecified organism; T81.40XA Infection following a procedure, unspecified, initial encounter; I50.32 Chronic diastolic (congestive) heart failure; K50.90 Crohn's disease, unspecified, without complications; Z68.43 Body mass index [BMI] 50.0-59.9, adult; N17.9 Acute kidney failure, unspecified; K80.20 Calculus of gallbladder without cholecystitis without obstruction; E66.01 Morbid (severe) obesity due to excess calories; L08.89 Other specified local infections of the skin and subcutaneous tissue; Z88.8 Allergy status to other drugs, medicaments and biological substances; Z88.0 Allergy status to penicillin; Z91.013 Allergy to seafood; F41.9 Anxiety disorder, unspecified; F32.A Depression, unspecified; I10 Essential (primary) hypertension; M19.90 Unspecified osteoarthritis, unspecified site
CPT/HCPCS: 10195; 50101; 50411; 50555; 51489; 52245; 52265; 52266; 53307; 53312; 53314; 56462; 56525; 56526; 58574; 62110; 62900; 70005